=== PATIENT | female | born 1965 | race Caucasian/White ===

== ENCOUNTER 2017-02-16 09:39 | Emergency (ER) | payer BC ==
--- NOTE | 2017-02-16 10:12 | EDM.PDOC ---
ED HPI GENERAL MEDICAL PROBLEM - General Chief Complaint: Genitourinary Problem Stated Complaint: POSSIBLY UTI Time Seen by Provider: 02/16/17 09:58 - History of Present Illness INITIAL COMMENTS - FREE TEXT/NARRATIVE: HISTORY AND PHYSICAL: History of present illness: The patient is a 52-year-old female who is here visiting from [facility] and has a history of hypertension and hypothyroidism and presents with frequency and dysuria and some urgency that has been occurring on and off for the last 1 week. She has had a history of UTIs with the last one being 2 years ago and she felt the symptoms coming on last week but tried to hydrate and they seemed to improve. Last evening they became worse and she came for evaluation. She has not had any flank pain fever chills nausea vomiting or abdominal pain she has no pelvic pain or vaginal complaints area she has never had kidney stones or any GI problems. She has no abdominal surgical history. She has not taken anything [id number]. The patient states in the past she has used both Bactrim and Macrobid with success she says the symptoms feel exactly the same as her prior UTIs Review of systems: As per history of present illness and below otherwise all systems reviewed and negative. Past medical history: As per history of present illness and as reviewed below otherwise noncontributory. Surgical history: As per history of present illness and as reviewed below otherwise noncontributory. Social history: No reported history of drug or alcohol abuse. Family history: As per history of present illness and as reviewed below otherwise noncontributory. Physical exam: General: Well-developed well-nourished female who is nontoxic and vital signs of been reviewed by me. She is somewhat anxious in the room but is speaking clearly and easily. HEENT: Atraumatic, normocephalic, negative for conjunctival pallor or scleral icterus, mucous membranes moist, throat clear, neck supple, nontender, trachea midline. Lungs: Clear to auscultation, breath sounds equal bilaterally, chest nontender. Heart: S1S2, regular rate and rhythm no overt murmurs Abdomen: Soft, nondistended, nontender. Negative for masses or hepatosplenomegaly. Negative for costovertebral tenderness. Pelvis: Stable nontender. Genitourinary: Deferred. Rectal: Deferred. Extremities: Atraumatic, negative for cords or calf pain. Neurovascular unremarkable. Neuro: Awake, alert, oriented. Cranial nerves II through XII unremarkable. Cerebellum unremarkable. Motor and sensory unremarkable throughout. Exam nonfocal. Diagnostics: UA urine culture Therapeutics: Patient is aware of testing results and we will go ahead and prescribed Macrobid and Pyridium for home. The patient states she's done well on Macrobid in the past and would like that again. I advised the patient to follow-up with her provider back home or one of our doctors if she continues to stay in the area and I also notified her that if the urine culture results yield anything that would need an antibiotic change we would address that. Impression: UTI Definitive disposition and diagnosis as appropriate pending reevaluation and review of above. hypogastric area Pain Score (Numeric/FACES): 7 - Related Data Allergies Allergy/AdvReac Type Severity Reaction Status Date / Time No Known Allergies Allergy Verified 02/16/17 09:40 Home Meds: Home Meds Levothyroxine Sodium [Synthroid] 112 mcg PO DAILY 02/16/17 [History] amLODIPine Besylate [Norvasc] 2.5 mg PO BID 02/16/17 [History] Past Medical History - Past Health History Medical/Surgical History: Denies Medical/Surgical History Cardiovascular History: Reports: Hypertension Genitourinary History: Reports: UTI, Recurrent Endocrine/Metabolic History: Reports: Hypothyroidism Social & Family History - Family History Family Medical History: Noncontributory - Tobacco Use Smoking Status *Q: Never Smoker - Recreational Drug Use Recreational Drug Use: No ED ROS GENERAL - Review of Systems Review Of Systems: ROS reveals no pertinent complaints other than HPI. ED EXAM, GENERAL - Physical Exam Exam: See Below (See dictation) Course - Vital Signs Last Recorded V/S: Last Vital Signs Temp 36.6 C 02/16/17 09:52 Pulse 120 H 02/16/17 09:52 Resp 16 02/16/17 09:52 BP 141/61 H 02/16/17 09:52 Pulse Ox 95 02/16/17 09:52 - Orders/Labs/Meds Orders: Active Orders 24 hr Category Date Time Status CULTURE URINE [RM] Stat Lab 02/16/17 09:02 Received Labs: Laboratory Tests 02/16/17 Range/Units 09:02 Urine Color YELLOW Urine Appearance SLT CLOUDY Urine pH 6.0 (5.0-8.0) Ur Specific [place] 1.010 (1.001-1.035) Urine Protein 100 (NEGATIVE) mg/dL Urine Glucose (UA) NEGATIVE (NEGATIVE) mg/dL Urine Ketones NEGATIVE (NEGATIVE) mg/dL Urine Occult Blood MODERATE (NEGATIVE) Urine Nitrite POSITIVE H (NEGATIVE) Urine Bilirubin NEGATIVE (NEGATIVE) Urine Urobilinogen 0.2 (<2.0) EU/dL Ur Leukocyte Esterase LARGE (NEGATIVE) Urine RBC 0-2 (0-2/HPF) Urine WBC TO NUMEROUS TO COUNT H (0-5/HPF) Ur Epithelial Cells OCCASIONAL (NONE-FEW) Urine Bacteria 4+ H (NEGATIVE) Departure - Departure Time of Disposition: 10:32 Disposition: Home, Self-Care 01 Condition: Good Clinical Impression: UTI, Urinary tract infectious disease - Discharge Information Referrals: PCP,None [Primary Care Provider] - Forms: ED Department Discharge Additional Instructions: The following information is given to patients seen in the emergency department who are being discharged to home. This information is to outline your options for follow-up care. We provide all patients seen in our emergency department with a follow-up referral. The need for follow-up, as well as the timing and circumstances, are variable depending upon the specifics of your emergency department visit. If you don't have a primary care physician on staff, we will provide you with a referral. We always advise you to contact your personal physician following an emergency department visit to inform them of the circumstance of the visit and for follow-up with them and/or the need for any referrals to a consulting specialist. The emergency department will also refer you to a specialist when appropriate. This referral assures that you have the opportunity for followup care with a specialist. All of these measure are taken in an effort to provide you with optimal care, which includes your followup. Under all circumstances we always encourage you to contact your private physician who remains a resource for coordinating your care. When calling for followup care, please make the office aware that this follow-up is from your recent emergency room visit. If for any reason you are refused follow-up, please contact the [facility] emergency department at and ask to speak to the emergency department charge nurse. [facility] Primary [facility]- Internal Medicine and Family [place] [phone] Push hydration and use medications as prescribed, Macrobid and Pyridium. These call and follow-up with your family doctor to reassess treatment plan for follow -up with one of our clinic physicians if you are staying in the area till next week. Return to ER as needed and as discussed - My Orders Last 24 Hours: My Active Orders 02/16/17 09:02 CULTURE URINE [RM] Stat - Assessment/Plan Last 24 Hours: My Active Orders 02/16/17 09:02 CULTURE URINE [RM] Stat
[2017-02-16 11:23] VITALS: BP 129/60
== END 2017-02-16 11:21 | disposition home or self-care (01) ==
LOC: MW.ED 09:39
DX: N39.0 Urinary tract infection, site not specified (principal); I10 Essential (primary) hypertension; E03.9 Hypothyroidism, unspecified; Z79.899 Other long term (current) drug therapy
CPT/HCPCS: 81001; 87086; 87088; 87186; 99283